=== PATIENT | male | born 1965 | race Native Hawaiian/Other Pacific Islander ===

== ENCOUNTER 2023-04-11 22:59 | Inpatient (IN) ==
[2023-04-12 01:21] LABS: Basophils # (Auto) 0.04 K/mcL (0.00-0.30); Basophils % (Auto) 0.2 % (0.0-2.0); Eosinophils # (Auto) 0 K/mcL (0.00-0.70); Eosinophils % (Auto) 0 % (0.0-7.0); Hematocrit 27.9 % (40.1-51.0); Hemoglobin 9.3 g/dL (13.7-17.5); Lymphocytes # (Auto) 1.38 K/mcL (1.50-4.80); Lymphocytes % (Auto) 6.5 % (15.5-49.0); Mean Cell Volume 88.9 fL (80.0-100.0); Mean Corpuscular HGB Conc 33.3 g/dL (31.0-36.0); Mean Platelet Volume 9.2 fL (8.8-12.5); Monocytes # (Auto) 1.27 K/mcL (0.10-0.90); Neutrophils % (Auto) 86.8 % (38.0-78.0); Platelet Count 310 K/mcL (140-440); RBC 3.14 M/mcL (4.63-6.08); WBC 21.3 K/mcL (4.5-11.0)
[2023-04-12 01:34] LABS: ALT/SGPT 12 U/L (<40); AST/SGOT 21 U/L (<40); Albumin/Globulin Ratio 0.8 (1.0-2.3); Alkaline Phosphatase 75 U/L (39-117); Bilirubin,Total 0.3 mg/dL (0.1-1.0); Blood Urea Nitrogen 92 mg/dL (6-20); Calcium 7.5 mg/dL (8.6-10.4); Carbon Dioxide 15 mmol/L (22-30); Chloride 98 mmol/L (96-108); Globulin 3.6 gm/dL (2.2-3.7); Glomerular Filtration Rate 5; Glucose 193 mg/dL (70-105)
[2023-04-12] MEDS ORDERED: ONDANSETRON 4 MG/2 ML VIAL IV PRN ×2 (01:50→09:53)
[2023-04-12] MEDS: cefTRIAXone 2 GM in DEXTROSE 5% IN WATER 50 ML IV ONE (01:55)
[2023-04-12] MEDS: ACETAMINOPHEN 1,000 MG/100 ML BAG IV ONE (02:23)
[2023-04-12] MEDS: AZITHROMYCIN 500 MG in DEXTROSE 5% IN WATER 250 ML IV ONE (02:58)
[2023-04-12] MEDS: 0.9 % SODIUM CHLORIDE 1,000 ML IV SCH (04:00)
[2023-04-12] MEDS: ASPIRIN 81 MG TAB.CHEW CHEWED ONE (04:40)
[2023-04-12] MEDS: ACETAMINOPHEN 325 MG TABLET PO PRN (08:45)
[2023-04-12] MEDS ORDERED: ACETAMINOPHEN 650 MG PO PRN (08:52)
[2023-04-12] MEDS ORDERED: ALBUTEROL SULFATE 60 PUFF INHALER INH PRN (08:54)
[2023-04-12] MEDS: CARVEDILOL 12.5 MG TABLET PO SCH (09:06)
[2023-04-12] MEDS: VITAMIN D3 25 MCG TABLET PO SCH (09:06)
[2023-04-12] MEDS: sitaGLIPtin 50 MG TABLET PO SCH (09:06)
[2023-04-12] MEDS: LISINOPRIL 10 MG TABLET PO SCH (09:06)
[2023-04-12] MEDS ORDERED: DEXTROSE 31 GM ORAL.SUSP PO PRN (09:53)
[2023-04-12] MEDS ORDERED: DEXTROSE 50% 50 ML VIAL IV PRN (09:53)
[2023-04-12] MEDS ORDERED: ZOLPIDEM 5 MG TABLET PO PRN (09:53)
[2023-04-12] MEDS ORDERED: IPRATROPIUM/ALBUTEROL 3 ML AMPUL.NEB NEB PRN (09:53)
[2023-04-12 10:27] LABS: C-Reactive Protein 25.5 mg/dL (0.03-0.80)
[2023-04-12] MEDS: HEPARIN 5,000 UNIT/ML VIAL SQ SCH (10:28)
[2023-04-12] MEDS: DOCUSATE SODIUM 100 MG CAPSULE PO SCH (10:28)
[2023-04-12] MEDS: INSULIN LISPRO 1 UNIT/0.01 ML UNIT SQ SCH (11:15)
[2023-04-12 11:24] LABS: Hemoglobin A1C 7.6 % Hgb (4.0-6.0)
[2023-04-12] MEDS: 0.9 % SODIUM CHLORIDE 10 ML SYRINGE IV SCH (14:15)
[2023-04-12] MEDS: cefTRIAXone 2 GM in DEXTROSE 5% IN WATER 50 ML IV SCH (15:49)
[2023-04-12] MEDS: cefTRIAXone 2 GM VIAL ONE (15:54)
[2023-04-12] MEDS ORDERED: cefTRIAXone 1 GM VIAL IV SCH (16:00)
[2023-04-12] MEDS: AZITHROMYCIN 500 MG in DEXTROSE 5% IN WATER 250 ML IV SCH (17:17)
[2023-04-12] MEDS: traMADol 50 MG TABLET PO PRN (18:55)
[2023-04-12] MEDS: morphine 4 MG/ML VIAL IV PRN (21:11)
[2023-04-12] MEDS: ATORVASTATIN 10 MG TABLET PO SCH (21:12)
[2023-04-12] MEDS: DOXAZOSIN 4 MG TABLET PO SCH (21:12)
[2023-04-12] MEDS: GABAPENTIN 300 MG CAPSULE PO SCH (21:12)
[2023-04-12] MEDS: SENNOSIDES 1 TABLET PO SCH (21:13)
[2023-04-13 06:02] LABS: Basophils # (Auto) 0.04 K/mcL (0.00-0.30); Basophils % (Auto) 0.3 % (0.0-2.0); Eosinophils # (Auto) 0.23 K/mcL (0.00-0.70); Eosinophils % (Auto) 1.4 % (0.0-7.0); Hematocrit 24.5 % (40.1-51.0); Hemoglobin 8.2 g/dL (13.7-17.5); Lymphocytes % (Auto) 11.9 % (15.5-49.0); Mean Cell Volume 88.8 fL (80.0-100.0); Mean Corpuscular HGB Conc 33.5 g/dL (31.0-36.0); Mean Platelet Volume 9.3 fL (8.8-12.5); Monocytes # (Auto) 1.56 K/mcL (0.10-0.90); Monocytes % (Auto) 9.8 % (1.0-12.0); Neutrophils % (Auto) 76.2 % (38.0-78.0); Platelet Count 289 K/mcL (140-440); RBC 2.76 M/mcL (4.63-6.08); WBC 15.9 K/mcL (4.5-11.0)
[2023-04-13 06:57] LABS: ALT/SGPT 12 U/L (<40); AST/SGOT 16 U/L (<40); Albumin 2.8 gm/dL (3.2-5.2); Albumin/Globulin Ratio 0.8 (1.0-2.3); Alkaline Phosphatase 78 U/L (39-117); Bilirubin,Total < 0.2 mg/dL (0.1-1.0); Blood Urea Nitrogen 102 mg/dL (6-20); Calcium 7.2 mg/dL (8.6-10.4); Carbon Dioxide 15 mmol/L (22-30); Chloride 100 mmol/L (96-108); Globulin 3.4 gm/dL (2.2-3.7); Glomerular Filtration Rate 5; Glucose 141 mg/dL (70-105)
[2023-04-13] MEDS: HYDROmorphone 1 MG/ML SYRINGE IV PRN (16:04)
== END 2023-04-13 16:45 | disposition short-term general hospital (02) | DRG 871 ==
LOC: ED 22:59 → ICU 04-12 03:06
PROVIDERS: ADMIT Internal Medicine; ATTEND Internal Medicine